=== PATIENT | female | born 1965 | race Caucasian/White ===

== ENCOUNTER → 2021-07-16 | Emergency (ER) | payer BC ==
[~2021-07-16] VITALS: Ht 162.6 cm; Wt 83.0 kg
[2021-07-16 22:43] VITALS: BP_SYST 130
--- NOTE | 2021-07-17 04:31 | NUR ---
ER Dr. Valenzuela at bedside examining patient.
--- NOTE | 2021-07-17 04:52 | NUR ---
Patient given written and verbal discharge instructions and verbalizes understanding. ER MD discussed with patient the results and treatment provided. Patient in stable condition. ID arm band removed. Rx of [place] given. Patient educated on pain management and to follow up with PMD. Pain Scale 3/10. Opportunity for questions provided and answered. Medication side effect fact sheet provided.
[2021-07-17 05:22] VITALS: BP_SYST 126
== END | disposition home or self-care (01) ==
LOC: SED 22:19
DX: M25.512 Pain in left shoulder (principal)
CPT/HCPCS: 73030; 99283